=== PATIENT | male | born 1955 | race Caucasian/White ===

== ENCOUNTER 2017-10-08 20:11 | Emergency (ER) | payer SELFPAY ==
[~2017-10-08] VITALS: Ht 180.3 cm; Wt 111.8 kg
[2017-10-08 20:24] VITALS: BP 127/60; PULSE 72; RESP 16; O2SAT 96
[2017-10-08] MEDS ORDERED: ROSU20 PO (20:37)
[2017-10-08] MEDS ORDERED: ADVA250A INH (20:37)
[2017-10-08] MEDS ORDERED: MONT10TA2 PO (20:37)
[2017-10-08] MEDS ORDERED: SODIUM CHLOR 0.9% 1000 ML INJ 1,000 ML IV ONE (20:44)
[2017-10-08] MEDS ORDERED: SODIUM CHLORIDE 0.9% FLUSH 10 ML FLUSH IVF PRN (20:45)
--- NOTE | 2017-10-08 20:50 | PD ---
HPI Chief Complaint: Syncope/Near-Syncope Time Seen by Provider: 20:29 Travel History International Travel<30 days: Yes Contact w/Intl Traveler<30days: [place] Country Traveled to: [place] Traveled to known affect area: No History of Present Illness HPI 61-year-old man, presents to the emergency department planing of a syncopal episode. He states today he was playing golf outside in the heat, had a couple beers initially, had some beer and wine at dinner, sitting on a barstool when he began to feel lightheaded faint and dizzy, and then woke up with paramedics around him. 1 of his friends noticed that he was not working well, and lowered him to the ground. He did not hit his head. Denies any premonitory chest pain , shortness of breath, or palpitations. He states one time a month or so ago he had some dizziness while playing golf in the heat. He is on blood pressure medications but does not know what. Denies being on any diuretics. No leg swelling. Otherwise had been feeling generally well and healthy. On EMS arrival he was diaphoretic. Initial blood pressure was 70 systolic. History Past Medical History Narrative Medical Hypertension Asthma Hyperlipidemia Past Surgical History Surgical History: No Previous Surgery Social History Alcohol Use: Yes (daily) Tobacco Use: No Allergies-Medications (Allergen,Severity, Reaction): Coded Allergies: shellfish derived (Verified Allergy, Severe, 10/08/17) tongue swelling Reported Meds & Prescriptions Reported Meds & Active Scripts Active Reported Crestor (Rosuvastatin Calcium) 20 Mg Tab 20 Mg PO DAILY Singulair (Montelukast Sodium) 10 Mg Tab 10 Mg PO HS Advair Diskus Inh (Fluticasone-Salmeterol Inh) 250-50 Mcg/Blist Aer 1 Puff INH BID Rinse mouth after use. Review of Systems Except as stated in HPI: all other systems reviewed are Neg Physical Exam Narrative GENERAL: Well-appearing 61-year-old man, no acute distress. SKIN: Focused skin assessment warm/dry. HEAD: Atraumatic. Normocephalic. EYES: Pupils equal and round. No scleral icterus. No injection or drainage. ENT: No nasal bleeding or discharge. Mucous membranes pink and moist. NECK: Trachea midline. No JVD. CARDIOVASCULAR: Regular rate and rhythm. No murmur appreciated. RESPIRATORY: No accessory muscle use. Clear to auscultation. Breath sounds equal bilaterally. GASTROINTESTINAL: Abdomen soft, non-tender, nondistended. Hepatic and splenic margins not palpable. MUSCULOSKELETAL: No obvious deformities. No clubbing. No cyanosis. No edema. NEUROLOGICAL: Awake and alert. No obvious cranial nerve deficits. Motor grossly within normal limits. Normal speech. PSYCHIATRIC: Appropriate mood and affect; insight and judgment normal. Data Data Last Documented VS Vital Signs Date Time Temp Pulse Resp B/P (MAP) Pulse Ox O2 Delivery O2 Flow Rate FiO2 10/08/17 20:24 72 16 127/60 (82) 96 Orders Orders Electrocardiogram (10/08/17 20:44) Complete Blood Count With Diff (10/08/17 20:44) Comprehensive Metabolic Panel (10/08/17 20:44) Magnesium (Mg) (10/08/17 20:44) Troponin I (10/08/17 20:44) Chest, Pa & Lat (10/08/17 20:44) Ecg Monitoring (10/08/17 20:44) Iv Access Insert/Monitor (10/08/17 20:44) Oximetry (10/08/17 20:44) Sodium Chloride 0.9% Flush (Ns Flush) (10/08/17 20:45) Sodium Chlor 0.9% 1000 Ml Inj (Ns 1000 M (10/08/17 20:44) Orthostatic Vital Signs (10/08/17 20:44) Labs Laboratory Tests Test 10/08/17 20:54 White Blood Count 6.8 TH/MM3 Red Blood Count 4.01 MIL/MM3 Hemoglobin 12.6 GM/DL Hematocrit 36.8 % Mean Corpuscular Volume 91.8 FL Mean Corpuscular Hemoglobin 31.4 PG Mean Corpuscular Hemoglobin Concent 34.3 % Red Cell Distribution Width 14.0 % Platelet Count 232 TH/MM3 Mean Platelet Volume 8.0 FL Neutrophils (%) (Auto) 50.0 % Lymphocytes (%) (Auto) 34.3 % Monocytes (%) (Auto) 10.5 % Eosinophils (%) (Auto) 4.2 % Basophils (%) (Auto) 1.0 % Neutrophils # (Auto) 3.4 TH/MM3 Lymphocytes # (Auto) 2.3 TH/MM3 Monocytes # (Auto) 0.7 TH/MM3 Eosinophils # (Auto) 0.3 TH/MM3 Basophils # (Auto) 0.1 TH/MM3 CBC Comment DIFF FINAL Differential Comment Blood Urea Nitrogen 19 MG/DL Creatinine 0.84 MG/DL Random Glucose 101 MG/DL Total Protein 6.2 GM/DL Albumin 3.2 GM/DL Calcium Level 7.9 MG/DL Magnesium Level 2.2 MG/DL Alkaline Phosphatase 49 U/L Aspartate Amino Transf (AST/SGOT) 19 U/L Alanine Aminotransferase (ALT/SGPT) 23 U/L Total Bilirubin 0.2 MG/DL Sodium Level 138 MEQ/L Potassium Level 3.1 MEQ/L Chloride Level 104 MEQ/L Carbon Dioxide Level 20.9 MEQ/L Anion Gap 13 MEQ/L Estimat Glomerular Filtration Rate 93 ML/MIN Troponin I LESS THAN 0.02 NG/ML MDM Medical Decision Making Medical Screen Exam Complete: Yes Emergency Medical Condition: Yes Interpretation(s) My review of EKG: Normal sinus rhythm with some PVCs, small inferior Q waves and nonspecific inferior T-wave inversions. Some premature complexes. No definite evidence of acute ischemia or evidence of arrhythmia. LABS: CBC remarkable for mild anemia. CMP remarkable for elevated BUN. Will bit a low protein. Chest x-ray negative Differential Diagnosis Syncope, orthostasis, dehydration, arrhythmia, ACS, other Narrative Course Medical decision making This 61-year-old man who presents to the emergency department after syncopal episode. Multiple possible contributing factors including exertion in the heat , dehydration, alcohol use, and medications. Difficult to completely exclude arrhythmia. Will check labs, EKG, x-ray, reassess. FINAL: I think this is he related syncope with concomitant factors of medications, alcohol, sitting up in this high stool for period of time. I do not see any evidence of arrhythmia. His BUNs a little bit elevated which would suggest dehydration. Elevated BUN could also suggest GI bleed he does have mild anemia. Denies any dark black stools or blood in his stools. He will monitor for this. Follow-up with his primary physician or return to the emergency department. Diagnosis Primary Impression: Syncope and collapse Additional Impression: Dehydration Additional Instructions: Drink plenty fluids stay well-hydrated. Drink plenty fluids when you are on the heat, avoid alcohol while you are on the heat. Return to the emergency part for any chest pain, palpitations, shortness of breath, recurrent fainting spells, or any other new or worsening symptoms. Med/Other Pt SpecificInfo: No Change to Meds Disposition: 01 DISCHARGE HOME Condition: Glenn Starr MD Oct 08, 2017 20:50
--- NOTE | 2017-10-08 21:21 | RADRPT ---
EXAM DATE: 10/08/2017 9:09 PM EDT AGE/SEX: 61 years / Male INDICATIONS: Palpitations. Fainted. CLINICAL DATA: This is the patient's initial encounter. Patient reports that signs and symptoms have been present for 1 day and indicates a pain score of 0/10. MEDICAL/SURGICAL HISTORY: None. None. COMPARISON: No prior exams available for comparison. FINDINGS: PA and lateral views of the chest demonstrate the lungs to be symmetrically aerated without evidence of mass, infiltrate or effusion. The cardiomediastinal contours are unremarkable. Osseous structures are intact. CONCLUSION: No active disease Electronically signed by: Prateek Dias MD 10/08/2017 9:20 PM EDT
[2017-10-08 21:27] LABS: AUTOMATED NEUTROPHIL # 3.4 TH/MM3 (1.8-7.7); BASOPHIL # 0.1 TH/MM3 (0-0.2); EOSINOPHIL # 0.3 TH/MM3 (0-0.4); EOSINOPHIL % 4.2 % (0.0-4.0); HEMATOCRIT 36.8 % (39.0-51.0); HEMOGLOBIN 12.6 GM/DL (13.0-17.0); LYMPH % 34.3 % (9.0-44.0); LYMPHOCYTE # 2.3 TH/MM3 (1.0-4.8); MEAN CELL VOLUME 91.8 FL (80.0-100.0); MEAN CORPUSCULAR HEMOGLOBIN 31.4 PG (27.0-34.0); MEAN CORPUSCULAR HGB CONC 34.3 % (32.0-36.0); MONO % 10.5 % (0.0-8.0); MONOCYTE # 0.7 TH/MM3 (0-0.9); PLATELET COUNT 232 TH/MM3 (150-450); RED BLOOD COUNT 4.01 MIL/MM3 (4.50-5.90); WHITE BLOOD COUNT 6.8 TH/MM3 (4.0-11.0)
[2017-10-08 21:39] LABS: ALBUMIN 3.2 GM/DL (3.4-5.0); AST (GOT) 19 U/L (15-37); BICARBONATE 20.9 MEQ/L (21.0-32.0); BLOOD UREA NITROGEN 19 MG/DL (7-18); CALCIUM 7.9 MG/DL (8.5-10.1); CHLORIDE 104 MEQ/L (98-107); CREATININE 0.84 MG/DL (0.60-1.30); GLOMERULAR FILTRATION RATE 93 ML/MIN (>89); GLUCOSE,RANDOM 101 MG/DL (74-106); MAGNESIUM 2.2 MG/DL (1.5-2.5); SODIUM (NA) 138 MEQ/L (136-145)
[2017-10-08 21:40] LABS: ALT (GPT) 23 U/L (12-78)
[2017-10-08 21:44] LABS: ALKALINE PHOSPHATASE 49 U/L (45-117); TOTAL BILIRUBIN ADULT 0.2 MG/DL (0.2-1.0); TOTAL PROTEIN 6.2 GM/DL (6.4-8.2); TROPONIN I LESS THAN 0.02 NG/ML (0.02-0.05)
--- NOTE | 2017-10-09 23:10 | EKG ---
Date Performed: 10/08/2017 Time Performed: 20:26:53 PTAGE: 61 years EKG: Sinus rhythm WITH FREQUENT SUPRAVENTRICULAR PREMATURE COMPLEXES NONSPECIFIC T-WAVE ABNORMALITY ABNORMAL RHYTHM EC G NO PREVIOUS TRACING DOCTOR: Daquan Charles Interpretating Date/Time 10/09/2017 23:09:15
== END 2017-10-08 22:04 | disposition home or self-care (01) ==
LOC: EDBD 20:11 → NEPE 20:11
DX: R55 Syncope and collapse (principal); E86.0 Dehydration; D64.9 Anemia, unspecified; R94.31 Abnormal electrocardiogram [ECG] [EKG]; I10 Essential (primary) hypertension; E78.5 Hyperlipidemia, unspecified; J45.909 Unspecified asthma, uncomplicated
CPT/HCPCS: 71046; 80053; 83735; 84484; 85025; 93005; 96360; 99285; J7030